=== PATIENT | male | born 1950 | race Caucasian/White ===

== ENCOUNTER → 2016-11-08 | Outpatient (CLI) | payer OTHER ==
[2016-11-08 11:14] LABS: BLOOD UREA NITROGEN 16 mg/dl (7-18); BUN/CREATININE RATIO 14.6 (10-20); CALCIUM 8.8 mg/dl (8.5-10.1); CHLORIDE 108 mmol/L (98-107); GLUCOSE 110 mg/dl (70-99); POTASSIUM 4.1 mmol/L (3.5-5.1); SODIUM 139 mmol/L (136-145)
[2016-11-08 11:18] LABS: CARBON DIOXIDE 22 mmol/L (21-32); ESTIMATED AVERAGE GLUCOSE 114 mg/dl; HA1C FLAG Normal (Normal); PROSTATE SPECIFIC ANTIGEN 0.341 ng/ml (0.000-4.000)
== END | disposition home or self-care (01) ==
LOC: C.LAB 09:42
PROVIDERS: ATTEND Internal Medicine
DX: R73.01 Impaired fasting glucose (principal); Z11.59 Encounter for screening for other viral diseases; Z12.5 Encounter for screening for malignant neoplasm of prostate

== ENCOUNTER 2023-10-21 12:02 | Observation (INO) ==
--- NOTE | 2023-09-28 15:04 | PAT Medication Instructions ---
Medication Instructions Date of Service September 28, 2023 Home Medications amlodipine 10 mg tablet 10 mg PO QAM cholecalciferol (vitamin D3) 25 mcg (1,000 unit) tablet (Vitamin D3) 25 mcg PO QAM ramipril 10 mg capsule 10 mg PO QAM DO NOT take the morning of surgery cholecalciferol (vitamin D3) 25 mcg (1,000 unit) tablet (Vitamin D3) 25 mcg PO QAM ramipril 10 mg capsule 10 mg PO QAM Take morning of surgery With a small sip of water, OTHERWISE NOTHING TO EAT OR DRINK AFTER MIDNIGHT: amlodipine 10 mg tablet 10 mg PO QAM Other Notes If you have any questions please call us at [phone] or [phone] or [phone] or [phone]
--- NOTE | 2023-10-01 10:26 | Anesthesiology Consultation ---
Date of Service October 01, 2023 Assessment & Plan (1) Encounter for pre-operative examination: - Infectious disease screening: Per assessment on 10/01/23: No known infectious disease contacts or current infectious disease symptoms. No noted recent Covid positive test result. - Outpatient joint assessment: Pt currently scheduled for inpatient pathway. If surgeon requests review for outpatient joint pathway, patient is an acceptable candidate for outpatient joint program from anesthesia standpoint pending surgeon's office assessment that patient is motivated, has good support and completes [facility] preop requirements. Chart Review Chart Review: Acceptable Risk for Surgery and Patient seen in Pre Admission Testing Teaching & Discussion Pre-Anesthesia Teaching/Discussion Notes: Instructed NPO after midnight before surgery,except medications with 15 cc of water. Medication instructions provided according to the PAT guidelines. History Surgery Operation Date: 10/21/23 12:30 Proposed Procedures p Left Total Knee Arthroplasty - Denis Gil MD Height/Weight Height: 5 ft 7 in Weight: 79 kg Allergies Allergy/AdvReac Type Severity Reaction Status Date / Time No Known Drug Allergies Allergy Verified 09/28/23 12:49 shellfish derived Allergy Anaphylaxis Verified 09/28/23 12:49 Medications Home Medications Medication Instructions Recorded Confirmed Last Taken amlodipine 10 mg tablet 10 mg PO QAM 09/28/23 09/28/23 Unknown cholecalciferol (vitamin D3) 25 25 mcg PO QAM 09/28/23 09/28/23 Unknown mcg (1,000 unit) tablet (Vitamin D3) ramipril 10 mg capsule 10 mg PO QAM 09/28/23 09/28/23 Unknown Past Medical History Medical History 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 Mild bibasilar scarring/atelectasis. Hypertension Primary osteoarthritis of knees, bilateral Exercise / Class Metabolic Activity II 4-5 Yardwork/Stairs/Walk up hill (one FS: no CP, no SOB) Past Surgical History Surgical History Hx of cardiac cath 2011- no stents (chest discomfort felt to be r/t indigestion) Hx of colonoscopy Past Anesthesia History No Hx of Anesthesia Complications and No Family Hx of Anesthesia Complications History of PONV No Hx of PONV and No Hx of Motion Sickness Social History Smoking Status: Former smoker Do You Dip or Chew Tobacco: Yes (1 can/2 weeks; advised none DOS) Smoking End Date: Quit 20+ years ago Hx Alcohol Use: Yes Alcohol type: beer alcohol intake frequency: 0-2 drinks per day (Maximum 2 beers/day) Hx Substance Use: No substance use type: does not use Review of Systems Patient denies chest pain, shortness of breath, dyspnea on exertion, fever, chills, cough, wheezing. Physical Exam Vital Signs BP 130/83 P 55 TEMP 98.3 SP02 97%RA RESP 18 Physical Full cervical extension range of motion. Full TMJ range of motion. TMD 3.5 finger breaths Mallampati Score 2 Dentition: full upper denture Lungs: clear throughout to auscultation Cardiac: regular rate and rhythm, no murmurs noted Spine: normal Carotid arteries: negative bruit Extremities: no LE edema Lab Results Anesthesia Preop Results Results Anesthesia Widget: WBC 7.38 K/ul (4.8-10.8) 10/01/23 Hgb 16.1 g/dl (14.0-18.0) 10/01/23 Hct 46.0 % (42.0-52.0) 10/01/23 Plt 308 K/uL (130-400) 10/01/23 Na 138 mmol/L (136-145) 10/01/23 K 3.8 mmol/L (3.5-5.1) 10/01/23 Cl 107 mmol/L (98-107) 10/01/23 CO2 24 mmol/L (21-32) 10/01/23 BUN 18 mg/dl (6-23) 10/01/23 Creat 0.90 mg/dl (0.6-1.4) 10/01/23 Glucose Level 99 mg/dl (70-99(Fasting)) 10/01/23 PT 11.0 Seconds (9.0-12.0) 10/01/23 PTT 26 Seconds (21-31) 10/01/23 INR 1.0 (0.9-1.1) 10/01/23 Blood Type O Positive 10/01/23 Antibody Screen NEGATIVE 05/23/24 Testing Electrocardiogram Date: 10/01/23 SB at 53bpm. "Otherwise normal ECG" Chest X-Ray Date: 10/01/23 FINDINGS: PA and lateral chest radiographs are obtained. No prior studies are available for comparison at the time of dictation. The cardiomediastinal silhouette is unremarkable. There is mild bibasilar scarring/atelectasis. The lungs and pleural spaces are otherwise clear. There is no pneumothorax. The skeletal structures are osteopenic. Bony thorax appears intact. Degenerative change is noted in the spine. IMPRESSION: No active disease in the chest.
[~2023-10-21 12:02] MED LIST: ROPIVACAINE 0.5% 5 MG/ML 30 ML VIAL ONE
--- NOTE | 2023-10-21 12:17 | History & Physical Bridge Note ---
Date of Service October 21, 2023 History & Physical Bridge Note I have examined the patient, reviewed the History & Physical and in the interval since the performance of the History & Physical I have noted the following changes of clinical significance: no changes noted
[2023-10-21] MEDS ORDERED: ONDANSETRON INJ 2 MG/ML 2 ML VIAL IV PRN ×2 (12:39→16:50)
[2023-10-21] MEDS ORDERED: HYDROmorphone INJ 1 MG/ML SYRINGE IV PRN (12:39)
[2023-10-21] MEDS ORDERED: ATROPINE SULFATE 0.1 MG/ML 10ML SYR IV PRN (12:39)
[2023-10-21] MEDS ORDERED: KETOROLAC 30 MG/ML VIAL IV PRN (12:39)
[2023-10-21] MEDS ORDERED: ePHEDrine sulfate 50 MG/ML AMP IV PRN (12:39)
[2023-10-21] MEDS: LR 500ML BOLUS, THEN 15ML/HR IV SCH (13:13)
[2023-10-21] MEDS: LR 60ML/HR IV SCH (13:13)
[2023-10-21] MEDS: ACETAMINOPHEN 500 MG TAB PO SCH ×2 (13:18→20:29)
[2023-10-21] MEDS: METOCLOPRAMIDE HCL 10 MG TABLET PO SCH (13:18)
[2023-10-21] MEDS: FAMOTIDINE 20 MG TAB PO SCH (13:18)
[2023-10-21] MEDS: CeleBREX 200 MG CAP PO SCH (13:18)
[2023-10-21] MEDS ORDERED: PROPOFOL IV EMULSION 10 MG/ML 20 ML VIAL IV ONE (13:19)
[2023-10-21] MEDS: dexAMETHasone**PF** 10 MG/ML VIAL IV SCH (13:19)
[2023-10-21] MEDS ORDERED: MIDAZOLAM HCL 1 MG/ML 2ML VIAL ONE (13:19)
[2023-10-21] MEDS ORDERED: LIDOCAINE 2% 2 ML VIAL/AMP(20MG/ML) INFIL ONE ×2 (13:19→14:24)
[2023-10-21] MEDS: ceFAZolin 2000MG 2,000 MG/15 ML SYR IV SCH (14:12)
[2023-10-21] MEDS ORDERED: PHENYLEPHRINE 100MCG/ML 10ML SYR IV ONE ×2 (14:40→15:39)
[2023-10-21] MEDS: ROPIV 0.5% 246mg, Ketorolac 30mg, EPINEPHrine 0.5mg in NSS INFIL SCH (14:56)
[2023-10-21] MEDS: TRANEXAMIC ACID 1,000 MG **IV Intra-op IV SCH (14:59)
--- NOTE | 2023-10-21 15:52 | Operative Report ---
PG Post Operative Report Pre & Post Diagnosis Operation Date: 10/21/23 13:50 Pre-Op Diagnosis: Left Knee Degenerative Joint Disease Post-Op Diagnosis: Left Knee Degenerative Joint Disease I identified the patient and participated in the time-out.: Yes Procedure Operation Date: 10/21/23 13:50 Actual Procedures p Left Total Knee Arthroplasty(Left) - Denis Gil MD Surgeon Denis Gil MD Guide Visitor Steven Madrid PA-C Estimated Blood Loss 50 Findings Consistent with Post-Op Diagnosis Operative findings were advanced left knee medial compartment DJD. Extensive grade 4 [id number] disease the medial compartment. There are fairly mild disease elsewhere. Slight varus Deformity to his knee with a moderate-sized knee joint effusion. Specimens Left knee sent for pathology. Anesthesia Type Spinal MAC Complications none Indications Patient is a 73-year-old fairly active healthy gentleman whose had a long history of bilateral knee pain discomfort describes gotten worse over time has been through extensive conservative treatments became less successful. X-rays show advanced bilateral knee arthritis. He elects proceed with left total knee replacement. Description of Procedure Operative implants consist of: 1 Biomet Vanguard size 65 left posterior stabilized femoral component. 2. Biomet size 71 tibial tray. 3. 12 mm posterior stabilized polyethylene insert. 4. 31 x 8 all poly patella. The patient was taken the operating, identified, placed on the operating table in the supine position. All contact areas were appropriately padded. IV antibiotics provided by anesthesia team. Spinal anesthetic and abductor canal block had been provided in the holding area. A left thigh turn was then placed. Left lower extremities then prepped and draped in usual sterile fashion. Left leg was elevated and exsanguinated with use of an Esmarch and tourniquet placed at 300 mmHg. An anterior approach the left knee was then performed to longitudinal incision centered over the patella. Sharp dissection was carried through subcutaneous tissue down to the extensor mechanism. A medial parapatellar arthrotomy incision was made. Some subperiosteal dissection was carried out medially. The fat pad was resected from Neath patella tendon. The lateral patellofemoral ligament was released. Patella subluxated laterally and the knee was flexed. The osteophytes taken off distal femur. The ACL and PCL were then released from distal femur the tibia subluxated anteriorly. The external treatment LYMErix then placed the interface the tibia and adjusted 14 mm medially. Proximal tibial cut was made remove about a millimeter or 2 bone from the medial side. The tibia was sized to a size 71. Attention drawn the femur. The distal femur examined with a sharp drill. Intramedullary canal was suction. A left 6 degree valgus cutting guide was placed. The distal femoral cutting block was pinned in place. Distal femoral cut was made to take an additional 3 mm of bone off distal femur. The femur was then sized to a size 65. The AP cutting block was pinned parallel to the epicondylar axis which was 4 degrees of external rotation. The anterior cut, anterior chamfer, posterior cut, posterior chamfer cuts were made. The box cutting guide was placed in the just slight lateral and the box cut was made. The knee was flexed. The remnants of the medial and lateral menisci were excised. The osteophytes taken off the posterior aspect the femur. A trial femoral component was placed. The tibial tray was pinned Marybeth external rotation and the drill and stem punch were used to create defect in the proximal tibia for the tibial tray. The knee was then trialed and the 12 mm insert fit most appropriately. Attention drawn the patella. The patella was cleaned of all soft tissues. Patella thickness measured 22 mm in thickness was cut down to 14. Was sized to a size 31 patella. The lug holes were drilled for 31 patella. The lateral osteophyte was removed. Patella button was placed. Knee was taken through range of motion patella tracked nicely with no thumbs test. Attention drawn to place the permanent components. All trial components were removed. Bone plug was placed in the distal femur limit blood loss. A double batch [place]os G cement was mixed. A Biomet Vanguard size 65 left posterior stabilized femoral component, a size 71 tibial tray, 12 mm post stabilized polyethylene insert, and a 31 x 8 all poly patella then cemented in place. The knee was brought out into full extension till cement hardened. Final cement check was then performed. The pericapsular tissues were injected with a total 100 cc of orthopedic joint mix. The patient did receive 1 g tranexamic acid. The tourniquet was then let down for final tourniquet time of 52 minutes. The wound was once again irrigated. The extensor Metros then closed with combination 1 PDS suture #1 Vicryl suture in [id number] fashion. Extensor Meclomen checked found to be intact through the subcutaneous tissues then closed with 2 Dexon suture in buried interrupted fashion and the skin was closed skin te. Leg was then cleaned and dried and sterilely dressed with Xeroform, 4 fours, sterile cast padding, Charanjit bandage were applied. Patient then transferred to the recovery room in stable condition. The patient tolerated procedure well and there were no complications. Steven Madrid, my physician assistant professor of religion, was present for the entire procedure. His assistance was essential and required for appropriate patient positioning, prepping and draping, surgical exposure, performing the technical details of the operation, placement the implants, closure of the wound, and placement of the sterile bandage. I attest to the content of the Intraoperative Record and any orders documented therein. Any exceptions are noted below.
--- NOTE | 2023-10-21 16:17 | XRay Report ---
XR knee LT 1 or 2V routine CLINICAL HISTORY: Surgical Post Op TECHNIQUE: 2 views of the left knee were obtained. Comparison: Comparison is made to knee radiograph 09/28/2023 FINDINGS: Patient is status post total knee arthroplasty with expected postsurgical changes including soft tiss ue swelling and subcutaneous emphysema. No periarticular lucency or hardware fracture is seen. IMPRESSION: Expected postoperative appearance status post placement of total knee arthroplasty. ACT 112: Negative or not required by law. Electronically signed by: Mariano Lunsford M.D. 10/21/2023 4:16 PM
[2023-10-21] MEDS ORDERED: MAGNESIUM HYDROXIDE SUSP 30 ML UDC PO PRN (16:50)
[2023-10-21] MEDS ORDERED: ALUMINUM/MAGNESIUM SUSP 30 ML UDC PO PRN (16:50)
[2023-10-21] MEDS ORDERED: NALOXONE HCL 0.4 MG/1 ML VIAL/CARP IV PRN (16:50)
[2023-10-21] MEDS ORDERED: oxyCODONE HCL IR 5 MG TAB (IMMEDIATE RELEASE) PO PRN (16:50)
[2023-10-21] MEDS ORDERED: HYDROmorphone INJ 0.5 MG/0.5 ML SYR IV PRN (16:50)
[2023-10-21] MEDS ORDERED: bisacodyL 10 MG SUPP PR PRN (16:50)
[2023-10-21] MEDS ORDERED: METOCLOPRAMIDE HCL INJ 5 MG/ML 2 ML VIAL IV PRN (16:50)
[2023-10-21] MEDS: ORTHO JOINT ANESTHETIC ONE (16:51)
--- NOTE | 2023-10-21 17:25 | Anesthesiology Progress Note ---
Date of Service October 21, 2023 Anesthesia Post Procedure Vital Signs Vital Signs: Temp Pulse Pulse Resp BP Pulse Ox O2 Del Method 10/21/23 16:40 36.9 C 77 16 131/63 93 Room Air 10/21/23 16:30 69 18 119/74 93 Room Air 10/21/23 16:20 37.1 C 71 18 133/67 93 Room Air 10/21/23 16:10 76 21 113/92 94 Oxymask 10/21/23 16:00 79 18 119/64 96 Oxymask 10/21/23 15:52 36.5 C 83 15 106/62 94 Oxymask 10/21/23 12:48 36.6 C 67 20 141/79 H 94 Room Air O2 Flow Rate 10/21/23 16:40 10/21/23 16:30 10/21/23 16:20 10/21/23 16:10 2 10/21/23 16:00 5 10/21/23 15:52 5 10/21/23 12:48 Transfer of Care Handoff Completed per policy Notes Mental Status: alert / awake / arousable Patient Amnestic to Procedure: Yes Nausea / Vomiting: adequately controlled Pain: adequately controlled Airway Patency, RR, SpO2: stable & adequate BP & HR: stable & adequate Hydration State: stable & adequate Neuraxial Anesthesia: was administered and sensory block is resolving Anesthetic Complications: no major complications apparent
[2023-10-21] MEDS: SODIUM CHLORIDE 0.9% 1,000 ML IV SCH (17:32)
[2023-10-21] MEDS: KETOROLAC TROMETHAMINE 15 MG/ML VIAL IV SCH (17:50)
[2023-10-21] MEDS: ASCORBIC ACID 500 MG TAB PO SCH (17:50)
[2023-10-21] MEDS: ASPIRIN 81 MG ECTAB PO SCH (20:28)
[2023-10-21] MEDS: SENNA 8.6 MG TAB PO SCH (20:28)
[2023-10-21] MEDS: DOCUSATE SODIUM 100 MG CAP PO SCH (20:28)
[2023-10-21] MEDS ORDERED: SENNA 8.6 MG TAB PO SCH (21:00)
[2023-10-21] MEDS: ceFAZolin 1000MG 1,000 MG/7.5 ML SYR IV SCH (21:44)
[2023-10-21] MEDS: TRANEXAMIC ACID / 0.7% NACL 1,000 MG/100 ML BAG IV SCH (21:44)
[2023-10-22 06:06] LABS: Hematocrit (blood only) 38.5 % (42.0-52.0); Hemoglobin 13.6 g/dl (14.0-18.0); Mean Corpuscular Hemoglobin 30.7 pg (25.0-34.0); Mean Corpuscular Hgb Conc 35.3 g/dL (32.0-36.0); Mean Corpuscular Volume 86.9 fL (80.0-100.0); Mean Platelet Volume 10.2 fL (9.4-12.4); Platelet Count 250 K/uL (130-400); RDW Coefficient of Variation 12.2 % (11.5-14.5); Red Blood Count 4.43 M/uL (4.70-6.10); White Blood Count 15.78 K/ul (4.8-10.8)
[2023-10-22 06:26] LABS: BUN Creatinine Ratio 16.5 (10-20); Calcium 8.4 mg/dl (8.6-10.3); Creatinine Clr Calc Pharmacy 62.5 ml/min; Est GFR (African American) 88.8 ml/min; Est GFR (Non-African American) 76.6 ml/min; Potassium 3.9 mmol/L (3.5-5.1)
--- NOTE | 2023-10-22 07:23 | Surgery Progress Note ---
Date of Service October 22, 2023 Assessment & Plan (1) Status post left knee replacement: Plan: 73-year-old gentleman now postop day 1 from left knee replacement doing well. Pain is controlled. He is neurologically intact. Plan: 1. DVT prophylaxis including thigh-high teds, SCDs, aspirin twice a day. 2. PT/OT. Weight-bear as tolerated left total knee protocol. 3. Pain control doing well with current pain regimen. 4. Disposition. Plan is to discharge to home after therapy today with some home health. Admission and Anticipated Discharge Date Admission Date: October 21, 2023 Subjective 73-year-old gentleman postop day 1 from a left knee replacement. He is doing well. A good night. Pains been controlled. No chest pain or shortness of breath. Not feeling dizzy or lightheaded. Hoping to go home today. Physical Exam Physical Exam: Physical exam shows a pleasant middle-age male. He is lying in bed looks quite comfortable. Examination left leg reveals the dressing be clean dry and intact. He can dorsiflex and plantarflex his foot appropriately. He can do a good straight leg raise. Respiratory: normal respiratory effort, lungs clear to auscultation Cardiovascular: RRR, no murmur, no edema Gastrointestinal (Abdomen): normal bowel sounds, soft, nontender, no hepatosplenomegaly Results & Data Vital Signs (Past 12 Hours) Vital Signs Temp Pulse Resp BP Pulse Ox O2 Del Method 10/22/23 03:50 36.6 C 67 16 131/70 94 Room Air 10/21/23 23:48 36.6 C 67 15 108/68 93 Room Air Laboratory Results Hemoglobin is 13.6. Hematocrit 38.5. Electrolytes are stable. PG Care Time/CCT Total # of Minutes Spent Total Time Spent with Patient: Total time spent is greater than 50% in coordination of care (as documented) at patient's floor/unit and/or counseling patient: Coding Level of Care Code 38532 Post Operative Follow-Up Diagnoses Status post left knee replacement Z96.652
[2023-10-22] MEDS: dexAMETHasone 10 MG in SYRINGE 0 ML IV SCH (08:16)
[2023-10-22] MEDS: ENALAPRIL MALEATE 10 MG TAB PO SCH (08:17)
[2023-10-22] MEDS: TAMSULOSIN HCL 0.4 MG CAP PO SCH (08:17)
[2023-10-22] MEDS: amLODIPine BESYLATE 5 MG TAB PO SCH (08:17)
[2023-10-22] MEDS: CHOLECALCIFEROL 25 MCG (1000 UNITS) TAB PO SCH (08:17)
[2023-10-22] MEDS: MULTIVITAMIN TAB PO SCH (08:17)
[2023-10-22] MEDS ORDERED: NON-FORMULARY MEDICATION (Amino Acids [Amino Acid] Capsule) PO SCH (09:00)
--- NOTE | 2023-10-22 09:12 | Discharge Summary ---
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 This 73-year-old gentleman returns for followup of his bilateral knee arthritis. He has got a longstanding history of knee arthritis and treated conservatively over the years. The right knee is bothering him for a longer period of time, but the left knee is bothering him more currently. He has had multiple steroid shots, which have become less successful over time. He is r ayse to consider surgery. Currently, the left knee is bothering him more than the right. Admission Exam Per Admitting Provider Gen: Physical examination shows a pleasant, healthy-appearing 73-year-old gentleman. HEENT: Benign. Neck: Supple. No lymphadenopathy. Lungs: Clear to auscultation. Heart: Regular rate and rhythm. Abdomen: Soft, nontender, nondistended. Extremities: Grossly neurovascularly intact except as follows: Examination of both knees reveals the patient ambulates independently. He has got varus alignment to both knees. Examination of the left knee reveals tenderness over the medial joint line. Trace knee effusion. Varus alignment. Range of motion is 0 to 125. No instability. No pain with hip motion. Examination of the right knee reveals a similar varus deformity. Little tender over the medial joint line. Minimal knee effusion. Range of motion is 0 to 125. No instability. No particular pain with hip motion. XR: Bilateral 3-view knee series from today was reviewed. It shows advanced bilateral knee DJD. He has got complete loss of medial joint space. Both knees are pretty similar. Principal Diagnosis Same as "Discharge Diagnosis" noted below under Discharge Instructions. Discharge Exam Physical exam shows a pleasant middle-age male. He is lying in bed looks quite comfortable. Examination left leg reveals the dressing be clean dry and intact. He can dorsiflex and plantarflex his foot appropriately. He can do a good straight leg raise. GENERAL: AA&Ox3, NAD. Pleasant, affect is calm. Sitting in bed and appears comfortable. RESPIRATORY: Normal respiratory effort with no signs of distress. CHEST/AXILLA: Chest movement symmetrical. No deformities noted. CARDIOVASCULAR: No edema noted. SKIN: Gore, warm and dry. MS/EXTREMITY: Knee dressing & CYNDEE wrap c/d/i. KONRAD hose donned to contralateral LE. + ankle dorsi/plantarflexion. NVI distally. Calf soft/NT. PT/DP intact. Discharge Data Allergies Allergy/AdvReac Type Severity Reaction Status Date / Time No Known Drug Allergies Allergy Verified 10/21/23 12:38 shellfish derived Allergy Anaphylaxis Verified 10/21/23 12:38 Procedures Performed Operation Date: 10/21/23 13:50 Actual Procedures p Left Total Knee Arthroplasty(Left) - Denis Gil MD Ordered Studies 10/21/23 05:00 US - OR guided needle placemen Routine Knee X-Ray 10/21/23 15:48 XR knee LT 1 or 2V routine CLINICAL HISTORY: Surgical Post Op TECHNIQUE: 2 views of the left knee were obtained. Comparison: Comparison is made to knee radiograph 09/28/2023 FINDINGS: Patient is status post total knee arthroplasty with expected postsurgical changes including soft tissue swelling and subcutaneous emphysema. No periarticular lucency or hardware fracture is seen. IMPRESSION: Expected postoperative appearance status post placement of total knee arthroplasty. ACT 112: Negative or not required by law. Electronically signed by: Mariano Lunsford M.D. 10/21/2023 4:16 PM Hospital Course (1) Status post left knee replacement: On October 21, 2023 Brendan arrived at [facility] operating room and underwent a left total knee replacement without complications. Patient had an adductor canal block and spinal anesthetic for the procedure. Postoperatively, patient was transferred to the general orthopedic floor in stable condition and eventually started onto aspirin 81 mg twice daily for DVT prophylaxis as appropriate. Patient's hospital course was uneventful. On postoperative day #1, patient's vital signs were stable and pain was well-controlled. Patient was able to participate well with physical therapy, safely performing the necessary ambulation and range of motion exercises and properly demonstrating ADL tasks. Patient was then discharged home in stable condition, with home health care services to begin. Patient will follow-up with orthopedics in 2 to 3 weeks for postoperative care. Plan 73-year-old gentleman now postop day 1 from left knee replacement doing well. Pain is controlled. He is neurologically intact. Plan: 1. DVT prophylaxis including thigh-high teds, SCDs, aspirin twice a day. 2. PT/OT. Weight-bear as tolerated left total knee protocol. 3. Pain control doing well with current pain regimen. 4. Disposition. Plan is to discharge to home after therapy today with some home health. Total Time Total Time Spent Total Time Spent (In Minutes): Total Time Spent with Patient: Total time spent is greater than 50% in coordination of care (as documented) at patient's floor/unit and/or counseling patient: Discharge Plan Discharge Items Patient Disposition: Home - Home Health Services Reason For Visit: Left Knee Degenerative Joint Disease Discharge Diagnosis: Left Knee Replacement Activity: Per Instructions section Non-emergency contact: Surgeon Call non-emergency contact if: you have any medication questions Follow-up/Referrals: Jesse Bee M.D. [Primary Care Provider] - Diet: Regular Addtl Attending Provider Instructions: ACTIVITY RECOMMENDATIONS: Physical Therapy: * You will go to physical therapy three times each week for four to six weeks after your surgery in order to regain your knee range of motion and to retrain your knee to work properly. * It is just as important to make sure you are getting your knee perfectly straight as it is to regain your knee bend. * Taking a pain pill an hour before therapy can help you have a more productive and comfortable therapy session. Home Exercise: * You were shown a series of exercises (heel props, heel slides, etc.) in the hospital. Do these exercises three to four times each day including the exercises you were shown in physical therapy. Walking: * Get up and walk several times each day. For the first four weeks, try not to stand or walk for more than one hour at a time. If you do stand or walk for more than one hour, you will not hurt anything, but your knee and leg will likely swell. * As you feel comfortable, you may change from the walker or crutches to a cane and then to independent walking. MEDICATIONS: New Medicine: * You will likely be taking one or more of these medications: 1. Oxycodone - A quick and shorter-acting pain medication. Take one to two tablets every six hours to lessen your pain. 2. Aspirin - Thins your blood to lessen the chance of forming a blood clot. * The most common side effects of pain medicine and iron are nausea and constipation. If nausea or constipation is too much of a problem or if you have any questions about your new medicines or doses, call [facility] at . We will try to help you manage these issues. "VERY IMPORTANT TO READ AND REVIEW" Pain: * The immediate post-operative period after knee replacement surgery is often quite painful. * You are given a prescription for pain medicine. You should take it, as directed, when you need it, especially before physical therapy and before going to bed. Pain that interferes with sleep is very common and can last several months. * You will likely need pain medicine for the first four to six weeks. It will not stop all of the pain. The pain will lessen and as you feel better, you may change to milder pain medicine such as Tylenol. * The most common side effects of pain medicine are nausea and constipation, so don't take more than you need. SPECIAL CARE INSTRUCTIONS: TEDs/Elastic Stockings: * The white elastic stockings help limit swelling and prevent blood clots from forming in your legs. The more you wear them, the more they work. * Wear them for six weeks after knee replacement surgery and four weeks after partial knee replacement. Incision Site Care: * Remove dressing postoperative day 2 and then shower. Keep direct shower pressure off the incision site. * After showering, cover te with dry gauze and change daily or more frequently if the dressing is getting saturated with drainage. * Use the KONRAD stockings to hold dressing in place. DO NOT apply tape on the skin. * May completely stop using bandage if wound is dry and no drainage * Sandy are removed between 2 and 3 weeks post-op. If your follow-up appointment is made before 2 weeks, please have your appointment re- scheduled. It is too early to remove the te. Prevention of Infection: * Take antibiotics one hour before any dental cleaning, dental work, urological procedure, gastrointestinal procedure or any invasive surgery in order to prevent your new joint from getting infected. * You may get the antibiotics from the doctor performing the procedure or you may call our office at [phone] before and we will call in a prescription to the pharmacy of your choice. Things to Watch For: * Drainage from the incision site that occurs more than one week after your surgery. * Severely increased knee/leg pain or swelling. * Increased redness at the incision site. * Fever above 102 degrees Fahrenheit. * Unusual chest pain or shortness of breath. * Unusual pain or burning with urination. [facility] at [phone] with any of the above problems or if you have any questions about your medicines or recovery. FOLLOW UP VISIT: Make an appointment to see your doctor for approximately two weeks after surgery for a progress check and staple removal by calling the office at [phone]. Pending Studies at Discharge: No Stand-Alone Forms: My [facility], Smoking Cessation Medications and DC Order Prescriptions: Continued (DME) Wheeled Walker [facility] See Rx Instructions .MEDSUPPLY Qty: 1 0RF Rx Instructions: As directed (DME) Wheeled Walker [facility] See Rx Instructions .MEDSUPPLY Qty: 1 0RF Rx Instructions: As directed oxycodone 5 mg tablet 5 - 10 mg PO Q6 PRN (Reason: pain) Qty: 40 0RF Rx Instructions: Take as needed for pain ondansetron 4 mg tablet,disintegrating 4 mg PO Q8 PRN (Reason: nausea) Qty: 20 1RF Rx Instructions: Take as needed for nausea sennosides [Senokot] 8.6 mg tablet 8.6 mg PO BID 14 Days Qty: 28 0RF Rx Instructions: Take two times a day to prevent/treat constipation ketorolac 10 mg tablet 10 mg PO Q6 5 Days Qty: 20 0RF Rx Instructions: Take 4 times per day with food for 5 days to lessen pain and swelling. acetaminophen [Tylenol Extra Strength] 500 mg tablet 1,000 mg PO TID 30 Days Qty: 180 0RF Rx Instructions: Take 3 times per day to lessen pain. aspirin [[place]ingo Low Dose Aspirin] 81 mg tablet,delayed release (DR/EC) 81 mg PO BID 45 Days Qty: 90 0RF Rx Instructions: Take to prevent blood clots. tamsulosin [Flomax] 0.4 mg capsule 0.4 mg PO DAILY Qty: 7 0RF Rx Instructions: Begin night BEFORE surgery to prevent urinary retention cefadroxil 500 mg capsule 500 mg PO BID 7 Days Qty: 14 0RF Rx Instructions: Take 1 cap twice a day to prevent infection amlodipine 10 mg Tablet 10 mg PO QAM ramipril 10 mg Capsule 10 mg PO QAM cholecalciferol (vitamin D3) [Vitamin D3] 25 mcg (1,000 unit) Tablet 25 mcg PO QAM Amino Acid Capsule 6 cap PO DAILY Admission Data Admit Date/Time: 10/21/23 15:48 Attending Provider: Denis Gil Admit Provider: Denis Gil Primary Care Provider: Jesse Bee Other Providers: [facility],Home Health
== END 2023-10-22 10:03 | disposition home health service (06) ==
LOC: 3E 12:02 → ASU 12:02